=== PATIENT | male | born 1985 | race Caucasian/White ===

== ENCOUNTER 2016-06-20 23:59 | Emergency (ER) | payer SELFPAY ==
[2016-06-21 00:39] VITALS: BP 156/92
[2016-06-21] MEDS ORDERED: Ibuprofen TAB* 800 MG PO ONE (02:10)
[2016-06-21] MEDS ORDERED: Acetaminophen TAB* 325 MG PO ONE (02:10)
--- NOTE | 2016-06-21 06:40 | ED ---
Tyler, DoctorRonna, scribed for Nandini Brown MD on 06/21/16 at 0222 . Lower Extremity - HPI Summary HPI Summary: 30 year old man arrived to [facility] c/o right foot pain after a large piece of heavy machinery (45-60 lbs) fell on him in the evening on 06/20/2016. He reports pain on the right foot and toes (rated 6/10 upon arrival), but no other pain or symptoms. He has had a tetanus shot within 10 years; has crutches to use at home. - History of Current Complaint Chief Complaint: EDExtremityLower Stated Complaint: RT FOOT INJURY Time Seen by Provider: 06/21/16 01:53 Mechanism Of Injury: Blunt Trauma - 60 lb machinery fell on the right foot Onset of Pain: Hours Onset/Duration: Still Present Severity Initially: Moderate Severity Currently: Moderate Pain Intensity: 6 Pain Scale Used: 0-10 Numeric Aggravating Factor(s): Weight Bearing Related History: Occupational Injury - Allergies/Home Medications Allergies/Adverse Reactions: Allergies Allergy/AdvReac Type Severity Reaction Status Date / Time No Known Allergies Allergy Verified 01/15/12 16:46 PMH/Surg Hx/FS Hx/Imm Hx Endocrine/Hematology History: Denies: Hx Diabetes Cardiovascular History: Denies: Hx Hypertension Infectious Disease History: No Infectious Disease History: Denies: Traveled Outside the [place] in Last 30 Days - Family History Known Family History: Negative: Cardiac Disease, Diabetes - Social History Occupation: Employed Full-time Lives: With Family Alcohol Use: Occasionally Substance Use Type: Reports: None Smoking Status (MU): Never Smoked Tobacco Review of Systems Negative: Fever Positive: Other - right foot pain All Other Systems Reviewed And Are Negative: Yes Physical Exam Triage Information Reviewed: Yes Vital Signs On Initial Exam: Initial Vitals Temp Pulse Resp BP Pulse Ox 98 F 89 18 156/92 98 06/21/16 00:34 06/21/16 00:34 06/21/16 00:34 06/21/16 00:34 06/21/16 00:34 Vital Signs Reviewed: Yes Appearance: Positive: Well-Appearing, No Pain Distress Skin: Positive: Warm, Skin Color Reflects Adequate Perfusion, Dry, Other - Abrasion to right middle toe Eyes: Positive: EOMI, SYL ENT: Positive: Pharynx normal, TMs normal Neck: Positive: Supple, Nontender Respiratory/Lung Sounds: Positive: Clear to Auscultation, Breath Sounds Present. Negative: Rales, Rhonchi, Wheezes Cardiovascular: Positive: RRR. Negative: Murmur, Rub Abdomen Description: Positive: Nontender, Soft Bowel Sounds: Positive: Present Musculoskeletal: Positive: Strength/ROM Intact. Negative: Edema Left, Edema Right Neurological: Positive: Sensory/Motor Intact, Alert, Oriented to Person Place, Time, CN Intact II-III Psychiatric: Positive: Affect/Mood Appropriate Diagnostics - Vital Signs Vital Signs Temp Pulse Resp BP Pulse Ox 06/21/16 00:34 98 F 89 18 156/92 98 - Laboratory Lab Statement: Any lab studies that have been ordered have been reviewed, and results considered in the medical decision making process. - Radiology Foot X-Ray Radiology Interpretation Completed By: ED Physician - Negative Lower Extremity Course/Dx - Course Course Of Treatment: no fracture seen on xray small abrasion/contusion to 3rd toe ok to go - Diagnoses Provider Diagnoses: Crush accident Discharge - Discharge Plan Condition: Stable Disposition: HOME Patient Education Materials: Crush Injury (ED) Forms: *Work Release Referrals: No Primary Care Phys,NOPCP [Primary Care Provider] - The documentation as recorded by the Doctor hidalgo Tahera accurately reflects the service I personally performed and the decisions made by me, Nandini Brown MD.
--- NOTE | 2016-06-21 07:50 | RAD ---
HISTORY: Right foot injury and pain COMPARISONS: None VIEWS: 3, Frontal, lateral, and oblique views of the right foot FINDINGS: BONE DENSITY: Normal. BONES: There is no displaced fracture. JOINTS: There is no arthropathy. ALIGNMENT: There is no dislocation. SOFT TISSUES: Unremarkable. OTHER FINDINGS: None. IMPRESSION: NO ACUTE OSSEOUS INJURY. IF SYMPTOMS PERSIST, RECOMMEND REPEAT IMAGING.
== END 2016-06-21 02:57 | disposition home or self-care (01) ==
LOC: ED 23:59
DX: M79.671 Pain in right foot (principal); S97.81XA Crushing injury of right foot, initial encounter; W23.0XXA Caught, crushed, jammed, or pinched between moving objects, initial encounter; Y93.9 Activity, unspecified; Y92.9 Unspecified place or not applicable
CPT/HCPCS: 99282